=== PATIENT | female | born 1990 | race Caucasian/White ===

== ENCOUNTER → 2017-02-19 | Outpatient (CLI) | payer OTHER ==
[~2017-02-19] MED LIST: BUSPAR15 M3; CELEXA20 M1; SENNA8.6 M1 PO
--- NOTE | ~2017-02-19 | CR97 ---
[facility] A Service of [facility] RADIOLOGY TEXT RESULTS PATIENT: JAKI MCMILLAN LOCATION: [facility] : [birth year] UNIT #: [id number] AGE: [address]: Garry Kiran MD SEX: F ORDER DR: [id number] [address] [address] [id number] O MR#: [id number] Acc #: [id number] NAME: JAKI MCMILLAN : 1990 SEX: F STUDY DATE/TIME: 02/19/2017 8:36 UNIT: [facility] ROOM: STUDY DESCRIPTION: CR Esophagram Attending Physician: Garry Kiran M.D. Referring Physician: Garry Kiran M.D. Ordering Physician: Garry Kiran M.D. Primary Care Physician: Generic Doctor Not In System MEDICAL IMAGING REPORT This report is preliminary unless electronic signature is present EXAM Single contrast barium esophagram INDICATION Preoperative examination prior to laparoscopic gastric banding procedure as well as short of breath with activity. TECHNIQUE The patient was administered thin barium and multiple fluoroscopic images were obtained. FINDINGS Thoracic esophagus is of normal caliber. There is no evidence of stricture or mass lesion. Esophageal motility appears within normal limits. No hiatal hernia or reflux was seen. Total fluoroscopy time was 0.3 minutes. A total of 13 fluoroscopic images were obtained. IMPRESSION Normal single contrast barium esophagram. STAT * RESULT Dictated by... Valerie Olson M.D. THIS IS AN ELECTRONICALLY VERIFIED REPORT Valerie Olson M.D. at 02/22/2017 5:03 PM AFF/aa TD: 02/22/2017 09:56 JOB #: [id number] [facility] A Service of [facility] RADIOLOGY TEXT RESULTS PATIENT: JAKI MCMILLAN LOCATION: [facility] #: [id number] : [birth year] UNIT #: [id number] AGE: [address]: Garry Kiran MD SEX: F ORDER DR: MEDICAL IMAGING REPORT Page 1 of 1 COPY
--- NOTE | ~2017-02-19 | EKG ---
PATIENT: JAKI MCMILLAN UNIT #: [id number] Ventricular Rate: 71 BPM Atrial Rate: 71 BPM P-R Interval: 164 ms QRS Duration: 88 ms Q-T Interval: 390 ms QTC Calculation(Bezet): 423 ms P [place]: 16 degrees Calculated R [place]: 22 degrees Calculated T [place]: 13 degrees Diagnosis Line: Normal sinus rhythm Diagnosis Line: Normal ECG Diagnosis Line: No previous ECGs available Diagnosis Line: Confirmed by HODA VARGAS MD ([id number]) on Diagnosis Line: 02/19/2017 2:47:02 PM INTERPRETING MD: ALICIA GUTHRIE
--- NOTE | ~2017-02-19 | CR63 ---
[facility] Service of [facility] RADIOLOGY TEXT RESULTS PATIENT: JAKI MCMILLAN LOCATION: [facility] : [birth year] UNIT #: [id number] AGE: [address]: Garry Kiran MD SEX: F ORDER DR: [id number] [facility] [address] [place], [place] [address] [id number] O MR#: [id number] Acc #: [id number] NAME: JAKI MCMILLAN : 1990 SEX: F STUDY DATE/TIME: 02/19/2017 8:24 UNIT: [facility] ROOM: STUDY DESCRIPTION: CR Chest 2 View Attending Physician: Garry Kiran M.D. Referring Physician: Garry Kiran M.D. Ordering Physician: Garry Kiran M.D. Primary Care Physician: Generic Doctor Not In System MEDICAL IMAGING REPORT This report is preliminary unless electronic signature is present EXAM Chest 02/19/2017 HISTORY 26-year-old female preop clearance for laparoscopic adjustable gastric band placement and possible paraesophageal hernia repair. Morbid obesity. Comparison none. FINDINGS PA and lateral chest views show normal cardiac size and configuration. Hilar structures and mediastinal contours are preserved. There is a 14 mm well-circumscribed nodule projecting in the right middle lobe. I expect this is a granuloma. No prior chest images for comparison. Consider 3-month repeat chest to confirm stability. IMPRESSION 14 mm solitary nodule projecting right middle lobe, probable granuloma. No comparison studies. Repeat chest in 3 months to confirm stability recommended. Large body habitus noted. Dictated by... Hunter Rock M.D. THIS IS AN ELECTRONICALLY VERIFIED REPORT Hunter Rock M.D. at 02/19/2017 1:33 PM Yolanda TD: 02/19/2017 12:50 JOB #: [id number] MEDICAL IMAGING REPORT Page 1 of 1 COPY
[2017-02-19 09:49] LABS: HEMATOCRIT 41.6 % (35.0-45.0); HEMOGLOBIN 14.1 gm/dL (12.0-16.0); MEAN CELL VOLUME 93.3 FL (83-96); MEAN CORPUSCULAR HEMOGLOBIN 31.5 PG (28-34); MEAN CORPUSCULAR HGB CONC 33.8 g/dL (30-36); MEAN PLATELET VOLUME 8.3 FL (6.5-11.5); RED BLOOD COUNT 4.46 X10e (3.90-5.30); RED CELL DISTRIBUTION WIDTH 12.9 % (11.0-15.5); WHITE BLOOD COUNT 6.4 X10e3 (4.0-10.5)
[2017-02-19 10:53] LABS: ALBUMIN SERUM 4.1 g/dL (3.5-5.0); BILIRUBIN,TOTAL 0.5 mg/dL (0.2-2.0); CALCIUM SERUM 9.3 mg/dL (8.4-10.2); CREATININE SERUM 0.6 mg/dL (0.6-1.4); POTASSIUM 4.3 mmol/L (3.5-5.1); PROTEIN TOTAL SERUM 6.8 g/dL (6.0-8.3)
== END | disposition home or self-care (01) ==
LOC: CRAD 08:06 → CAMB 10:00
PROVIDERS: Surgery
DX: Z01.818 Encounter for other preprocedural examination (principal); R91.1 Solitary pulmonary nodule
CPT/HCPCS: 36415; 71020; 74220; 80053; 80061; 84443; 85027; 93005

== ENCOUNTER → 2017-03-03 | Day surgery (SDC) | payer OTHER ==
--- NOTE | ~2017-03-03 | CR7 ---
[facility] A Service of [facility] RADIOLOGY TEXT RESULTS PATIENT: JAKI MCMILLAN LOCATION: [facility] : [birth year] UNIT #: [id number] AGE: [address]: Garry Kiran MD SEX: F ORDER DR: [id number] [facility] [address] [place], [place] [address] [id number] O MR#: [id number] Acc #: [id number] NAME: JAKI MCMILLAN : 1990 SEX: F STUDY DATE/TIME: 03/03/2017 13:38 UNIT: [facility] ROOM: STUDY DESCRIPTION: CR Abdomen Single AP View Attending Physician: Garry Kiran M.D. Ordering Physician: Garry Kiran M.D. Primary Care Physician: Generic Doctor MEDICAL IMAGING REPORT This report is preliminary unless electronic signature is present EXAM KUB, 03/03. INDICATIONS Gastric band placement today. Morbid obesity. Abdominal pain. FINDINGS Supine view of the abdomen was obtained. Gastric band is present with a phi angle of 60 degrees. Port is in the left lower abdomen. Bowel gas pattern is normal. Cholecystectomy clips are present. IMPRESSION Gastric band in place with phi angle of 60 degrees. Dictated by... Austen Soto Jr., M.D. THIS IS AN ELECTRONICALLY VERIFIED REPORT Austen Soto Jr., M.D. at 03/05/2017 2:28 PM SUNDEEP/michelet TD: 03/03/2017 20:16 JOB #: [id number] MEDICAL IMAGING REPORT Page 1 of 1 COPY
--- NOTE | ~2017-03-03 | OR ---
Unit #: [id number] #: [id number] Patient: JAKI MCMILLAN [id number] [address] [address] [id number] O MR#: [id number] NAME: JAKI MCMILLAN ROOM: Date of Procedure: 03/03/2017 Admission Date: 03/03/2017 Surgeon: Garry Krian M.D. : 1990 Attending Physician: Garry Kiran M.D. Primary Care Physician: Generic Doctor Not In System OPERATIVE REPORT PREOPERATIVE DIAGNOSIS Chronic morbid obesity. Body mass index of 44. POSTOPERATIVE DIAGNOSES 1. Chronic morbid obesity. Body mass index of 44. 2. Paraesophageal hiatal hernia. PROCEDURES PERFORMED 1. Laparoscopic adjustable gastric band. 2. Laparoscopic paraesophageal hiatal hernia repair. ACID TESTER Evens Kraus M.D. ANESTHESIA General. ESTIMATED BLOOD LOSS Minimal. IV FLUIDS 800 crystalloid. COMPLICATIONS None. INDICATIONS FOR PROCEDURE The patient is a 26-year-old with chronic morbid obesity. DESCRIPTION OF PROCEDURE The patient was taken to the operating room and placed in supine position. General anesthesia was induced. The abdomen was prepped and draped. A 3-cm incision was then made left of the midline. A 10-mm Visiport was then placed intraabdominal under direct vision. The abdomen was insufflated to 15 mmHg with CO2. The patient was then placed in a steep reversed Trendelenburg. General inspection of the abdomen revealed what appeared to be a paraesophageal hernia. This was identified with a defect at the diaphragm using anterior palpation with the instrument. We then made a small incision in the subxiphoid region. A Kaity liver retractor was then placed intraabdominal and used to retract the left lobe of the liver upward to further expose the paraesophageal hernia and GE junction. I then placed a 5-mm port in the right upper quadrant, a 10-mm Unit #: [id number] #: [id number] Patient: JAKI MCMILLAN port in the left upper quadrant, and another 5-mm port in the left lower quadrant. The stomach was retracted medial and downward. Upon retracting the stomach, we took down the paraesophageal ligament, exposing the right and left lester at the paraesophageal hernia. Any hernia sac was reduced. We then repaired the paraesophageal hernia using interrupted #0 Ethibond sutures in a [id number] type fashion. This formed a snug repair to the anterior esophagus. We then retracted the stomach medially and further exposed the angle of His using Bovie electrocautery. The stomach was then retracted laterally. We then took down the hepatogastric ligament with Bovie electrocautery. This exposed the right lester. Using blunt dissection, I created a retrogastric tunnel from this point to the angle of His. The band was then placed intraabdominal through the 10-mm port site. This was then brought through the retrogastric tunnel in a pars flaccida technique. The band was then closed anteriorly to form a 20-mL to 25-mL anterior gastric pouch. The fundus was then secured to the anterior pouch to prevent movement around the stomach using two interrupted #0 Ethibond sutures. A third suture was then used as a gathering stitch from the lesser curve to the anterior stomach, gathering and imbricating the remaining fundus of the stomach. The tubing was then brought out through the midline 10-mm port site. All ports and the Kaity liver retractor were removed under direct vision with no evidence of abdominal hemorrhage. A polypropylene mesh was then secured to the posterior face of the laparoscopic band port. This was secured using #0 Ethibond suture. This was then cut to shape. The port was then connected to the tubing and placed into a subcutaneous pocket just anterior to the rectus sheath. Its position was then confirmed. All tubing was then placed intraabdominal. The wounds were then closed with interrupted 4-0 Vicryl. The patient tolerated the procedure well and was sent to the recovery room in good condition. Dictated by... Gillian Calero/rush TD: 03/03/2017 14:17 JOB #: [id number] OPERATIVE REPORT Page 1 of 1 X Garry Kiran MD X PROCEDURE OPERATIVE NOTE
== END | disposition home or self-care (01) ==
LOC: CSUR 09:00
DX: E66.01 Morbid (severe) obesity due to excess calories (principal); K44.9 Diaphragmatic hernia without obstruction or gangrene; F41.9 Anxiety disorder, unspecified; K21.9 Gastro-esophageal reflux disease without esophagitis; K58.9 Irritable bowel syndrome, unspecified; E66.3 Overweight; Z68.41 Body mass index [BMI] 40.0-44.9, adult; Z90.49 Acquired absence of other specified parts of digestive tract; Z98.890 Other specified postprocedural states; Z98.51 Tubal ligation status; Z79.899 Other long term (current) drug therapy
CPT/HCPCS: 74000; 84703; C1781; J0330; J0690; J1100; J1650; J1885; J2250; J2405; J2710; J3010